=== PATIENT | female | born 1970 | race Two or more races ===

== ENCOUNTER → 2019-11-12 | Outpatient (CLI) | payer OTHER | END | disposition home or self-care (01) | LOC: RAD 08:48 | DX: M25.561 Pain in right knee (principal); M25.562 Pain in left knee ==

== ENCOUNTER 2023-03-10 13:25 | Outpatient (CLI) | payer OTHER | END 2023-03-10 13:38 | disposition home or self-care (01) | LOC: RAD 13:25 | PROVIDERS: ATTEND Orthopaedic Surgery | DX: M25.561 Pain in right knee (principal) ==

== ENCOUNTER 2023-03-13 10:35 | Outpatient (CLI) | payer OTHER | END 2023-03-13 10:37 | disposition home or self-care (01) | LOC: MRI 10:35 | PROVIDERS: ATTEND Orthopaedic Surgery | DX: M25.562 Pain in left knee (principal); M23.92 Unspecified internal derangement of left knee | CPT/HCPCS: 73718 ==

== ENCOUNTER 2023-04-03 12:05 | Outpatient (CLI) | payer OTHER | END 2023-04-03 12:11 | disposition home or self-care (01) | LOC: NUCLEAR 12:05 | PROVIDERS: ATTEND Orthopaedic Surgery | DX: M81.0 Age-related osteoporosis without current pathological fracture (principal) ==

== ENCOUNTER 2023-04-29 08:33 | Emergency (ER) | payer OTHER ==
[~2023-04-29] VITALS: Ht 157.5 cm; Wt 59.9 kg
[2023-04-29] MEDS ORDERED: SALONPAS1 EACH TOP (09:35)
[2023-04-29] MEDS ORDERED: DICLOFENAC POTA50 MG PO (09:35)
[2023-04-29] MEDS ORDERED: MEDROLPACK PO (09:35)
== END 2023-04-29 09:53 | disposition home or self-care (01) ==
LOC: ER 08:33
DX: M25.562 Pain in left knee (principal)

== ENCOUNTER 2024-06-10 10:06 | Outpatient (CLI) | payer OTHER ==
[~2024-06-10 10:06] MED LIST: DICLOFENAC POTA50 MG PO; MEDROLPACK PO; SALONPAS1 EACH TOP
== END 2024-06-10 10:22 | disposition home or self-care (01) ==
LOC: RAD 10:06
PROVIDERS: ATTEND Orthopaedic Surgery
DX: M25.561 Pain in right knee (principal)

== ENCOUNTER 2024-09-16 14:50 | Outpatient (CLI) | payer OTHER | END 2024-09-16 14:57 | disposition home or self-care (01) | LOC: RAD 14:50 | PROVIDERS: ATTEND Orthopaedic Surgery | DX: M25.561 Pain in right knee (principal); M22.41 Chondromalacia patellae, right knee ==